=== PATIENT | male | born 1945 | race Caucasian/White ===

== ENCOUNTER 2022-10-13 12:12 | Day surgery (SDC) | payer MEDICARE ==
[~2022-10-13 12:12] MED LIST: Lactated Ringers 1,000 ML IV SCH; Midazolam 1 MG/ML 2 ML SDV ONE; Propofol 200 MG/20 ML SDV ONE; Sodium Chloride 0.9% 10 ML Syringe FLUSH PRN
== END 2022-10-13 14:51 | disposition home or self-care (01) ==
LOC: LL.SDS 12:12
PROVIDERS: ATTEND Surgery
DX: R19.5 Other fecal abnormalities (principal); Q43.8 Other specified congenital malformations of intestine; I10 Essential (primary) hypertension; E11.51 Type 2 diabetes mellitus with diabetic peripheral angiopathy without gangrene; E03.9 Hypothyroidism, unspecified; E78.2 Mixed hyperlipidemia; J43.8 Other emphysema; F32.A Depression, unspecified; L97.522 Non-pressure chronic ulcer of other part of left foot with fat layer exposed; G31.84 Mild cognitive impairment of uncertain or unknown etiology; F17.210 Nicotine dependence, cigarettes, uncomplicated; Z79.890 Hormone replacement therapy; Z79.899 Other long term (current) drug therapy
CPT/HCPCS: 00812; J2250; J2704; J7120